=== PATIENT | female | born 1980 | race Caucasian/White ===

== ENCOUNTER 2022-07-12 12:14 | Emergency (ER) | payer OTHER ==
--- NOTE | 2022-07-12 12:50 | ER ---
Nurse's Notes [facility] Name: Belkis Carter Age: 41 yrs Sex: Female : 1980 Arrival Date: 07/12/2022 Time: 12:18 Bed 28 Private MD: Diagnosis: Unspecified acute conjunctivitis, left eye Presentation: 07/12 12:23 Chief complaint: Patient states: "Sia had pink eye for 11 days". Using prescribed eye ll1 drops, just got worse yesterday. More pain, blurred vision, and very photosensitive for 2 days. Fever 993 at home yesterday. Coronavirus screen: Vaccine status: Patient reports being unvaccinated. Client denies travel out of the [place] in the last 14 days. At this time, the client does not indicate any symptoms associated with coronavirus-19. Ebola Screen: Patient denies travel to an Ebola-affected area in the 21 days before illness onset. Initial Sepsis Screen: Does the patient meet any 2 criteria? No. Patient's initial sepsis screen is negative. Does the patient have a suspected source of infection? Yes: S/S of meningitis or endocarditis. Risk Assessment: Do you want to hurt yourself or someone else? Patient reports no desire to harm self or others. Onset of symptoms was July 11, 2022. 12:23 Method Of Arrival: Ambulatory ll1 12:23 Acuity: FREDDY 3 ll1 Triage Assessment: 12:26 General: Appears uncomfortable, ill, Behavior is cooperative, appropriate for age. ll1 Pain: Complains of pain in left eye Pain currently is 9 out of 10 on a pain scale. EENT: Reports pain in left eye. Historical: - Allergies: 12:22 shrimp/shellfish; ll1 12:22 Gluten Protein; ll1 - PMHx: 12:22 Hypothyroidism; ll1 - PSHx: 12:22 bartholins gland removed; ll1 - Immunization history:: Client reports having NOT received the Covid vaccine. - Social history:: Smoking status: Patient denies any tobacco usage or history of. Screenin:54 Abuse screen: Denies threats or abuse. Nutritional screening: No deficits noted. em6 Tuberculosis screening: No symptoms or risk factors identified. Fall Risk Total Finn Fall Scale indicates No Risk (0-24 pts). Assessment: 12:53 General: Appears uncomfortable, Behavior is cooperative. Pain: Complains of pain in em6 left eye Pain currently is 9 out of 10 on a pain scale. Neuro: Level of Consciousness is awake, alert, obeys commands, Oriented to person, place, time, situation. Cardiovascular: Patient's skin is warm and dry. Respiratory: Airway is patent Respiratory effort is even, unlabored, Respiratory pattern is regular, symmetrical. GI: No signs and/or symptoms were reported involving the gastrointestinal system. : No signs and/or symptoms were reported regarding the genitourinary system. EENT: Eyes redness noted in left eye. Derm: No signs and/or symptoms reported regarding the dermatologic system. Musculoskeletal: Circulation, motion, and sensation intact. Range of motion: intact in all extremities. Vital Signs: 12:23 BP 143 / 96; Pulse 88; Resp 17; Temp 97.9; Pulse Ox 96% ; Weight 113.4 kg; Height 5 ft. ll1 4 in. (162.56 cm); Pain 9/10; 12:53 BP 132 / 94; Pulse 70; Resp 16; Pulse Ox 99% on R/A; em6 12:23 Body Mass Index 42.91 (113.40 kg, 162.56 cm) ll1 ED Course: 12:18 Patient arrived in ED. mr 12:26 Triage completed. ll1 12:27 Arm band placed on Patient placed in an exam room, on a stretcher. ll1 12:41 Finn Montemayor NP is PHCP. pm1 12:41 Allie Valverde MD is Attending Physician. pm1 12:50 Herman Cannon MD is Referral Physician. pm1 12:52 Gina Myers RN is Primary Nurse. em6 12:54 Bed in low position. Call light in reach. Pulse ox on. NIBP on. Warm blanket given. em6 13:19 No provider procedures requiring assistance completed. Patient did not have IV access em6 during this emergency room visit. Administered Medications: 12:53 Drug: [employer] (HYDROcodone-acetaminophen) (7.5 mg-325 mg) 1 tabs Route: PO; em6 13:18 Follow up: Response: No adverse reaction em6 Medication: 12:54 VIS not applicable for this client. em6 Outcome: 12:50 Discharge ordered by . pm1 13:19 Discharged to home ambulatory. em6 13:19 Condition: stable 13:19 Discharge instructions given to patient, significant other, Instructed on discharge instructions, follow up and referral plans. medication usage, Demonstrated understanding of instructions, follow-up care, medications, Prescriptions given X 2. 13:20 Patient left the ED. em6 Signatures: Juana Richardson mr MontemayorFinn, AUDIO VISUAL SECRETARY AUDIO VISUAL SECRETARY pm1 Jelena Morrison RN RN ll1 Gina Myers RN RN em6
--- NOTE | 2022-07-12 12:50 | EDPHYS ---
Physician Documentation [facility] Name: Belkis Carter Age: 41 yrs Sex: Female : 1980 Arrival Date: 07/12/2022 Time: 12:18 Bed 28 Private MD: ED Physician Allie Valverde HPI: 07/12 12:49 This 41 yrs old Female presents to ER via Ambulatory with complaints of Vision Problem. pm1 12:49 The patient is experiencing matting or discharge, pain, to the left eye, caused by an pm1 unknown mechanism. Onset: The symptoms/episode began/occurred 11 day(s) ago. Duration: the symptoms are continuous. Aggravated by light, opening eye, Alleviated by covering eye. Associated signs and symptoms: Pertinent positives: sore throat last week. Patient does not utilize any form of vision correction. Severity of symptoms: in the emergency department the symptoms are unchanged. The patient has not experienced similar symptoms in the past. clinic and given polytrim opthalmic. Historical: - Allergies: 12:22 shrimp/shellfish; ll1 12:22 Gluten Protein; ll1 - PMHx: 12:22 Hypothyroidism; ll1 - PSHx: 12:22 bartholins gland removed; ll1 - Immunization history:: Client reports having NOT received the Covid vaccine. - Social history:: Smoking status: Patient denies any tobacco usage or history of. ROS: 12:49 Constitutional: Negative for fever, chills, and weight loss. pm1 12:49 Cardiovascular: Negative for chest pain, palpitations, and edema, Respiratory: Negative for shortness of breath, cough, wheezing, and pleuritic chest pain, MS/Extremity: Negative for injury and deformity, Skin: Negative for injury, rash, and discoloration. 12:49 Neuro: Negative for headache, weakness, numbness, tingling, and seizure. 12:49 Eyes: Positive for discharge, matting, pain, of the left eye, Negative for vision loss, visual disturbance. 12:49 ENT: Positive for sore throat, last week. 12:49 All other systems are negative. Exam: 12:49 Constitutional: This is a well developed, well nourished patient who is awake, alert, pm1 and in no acute distress. Head/Face: Normocephalic, atraumatic. 12:49 Skin: Warm, dry with normal turgor. Normal color with no rashes, no lesions, and no evidence of cellulitis. MS/ Extremity: Pulses equal, no cyanosis. Neurovascular intact. Full, normal range of motion. 12:49 Eyes: Periorbital structures: no acute changes, Pupils: no acute changes, Extraocular movements: no acute changes, Conjunctiva: injected, in the left eye. 12:49 ENT: Exam is negative for acute changes, Mouth: no acute changes, Lips: normal, moist, Oral mucosa: normal, pink and intact, moist, Posterior pharynx: no acute changes. 12:49 Cardiovascular: Exam negative for acute changes, Rate: normal, Rhythm: regular, Pulses: no pulse deficits are appreciated. 12:49 Respiratory: Exam negative for acute changes, respiratory distress, shortness of breath. 12:49 Neuro: Exam negative for acute changes, Orientation: is normal, Mentation: is normal, Motor: is normal, moves all fours. Vital Signs: 12:23 BP 143 / 96; Pulse 88; Resp 17; Temp 97.9; Pulse Ox 96% ; Weight 113.4 kg; Height 5 ft. ll1 4 in. (162.56 cm); Pain 9/10; 12:53 BP 132 / 94; Pulse 70; Resp 16; Pulse Ox 99% on R/A; em6 12:23 Body Mass Index 42.91 (113.40 kg, 162.56 cm) ll1 MDM: 12:41 Patient medically screened. pm1 12:48 Data reviewed: vital signs. Data interpreted: Pulse oximetry: on room air is 96 %. pm1 Interpretation: normal. 12:49 Counseling: I had a detailed discussion with the patient and/or guardian regarding: the pm1 historical points, exam findings, and any diagnostic results supporting the discharge/admit diagnosis, the need for outpatient follow up, an opthalmologist, to return to the emergency department if symptoms worsen or persist or if there are any questions or concerns that arise at home. Administered Medications: 12:53 Drug: [place] (HYDROcodone-acetaminophen) (7.5 mg-325 mg) 1 tabs Route: PO; em6 13:18 Follow up: Response: No adverse reaction em6 Disposition Summary: 07/12/22 12:50 Discharge Ordered Location: Home pm1 Problem: new pm1 Symptoms: have improved pm1 Condition: Stable pm1 Diagnosis - Unspecified acute conjunctivitis, left eye pm1 Followup: pm1 - With: Emergency Department - When: As needed - Reason: Worsening of condition Followup: pm1 - With: Herman Cannon MD - When: 2 - 3 days - Reason: Recheck today's complaints, Continuance of care, Re-evaluation by your physician Discharge Instructions: - Discharge Summary Sheet pm1 - Bacterial Conjunctivitis, Adult pm1 - How to Use Eye Drops and Eye Ointments pm1 Forms: - Medication Reconciliation Form pm1 - Thank You Letter pm1 - Antibiotic Education pm1 - Prescription Opioid Use pm1 Prescriptions: - Amoxicillin 500 mg Oral Capsule - take 1 capsule by ORAL route every 8 hours for 10 days; 30 tablet; Refills: 0, pm1 Product Selection Permitted - Vigamox 0.5 % Ophthalmic Drops - instill 1 drop by OPHTHALMIC route every 8 hours for 7 days; 5 milliliter; pm1 Refills: 0, Product Selection Permitted Signatures: Finn Montemayor NP [employer]IE[employer] pm1 Jelena Morrison, RN RN ll1 Gina Myers RN RN em6
[2022-07-12] MEDS ORDERED: HYDROCODONE/APAP 7.5/325 MG TAB ONE (12:58)
[2022-07-12 13:48] VITALS: TEMP 97.9
[2022-07-12 13:50] VITALS: BP 132/94; O2SAT 99
== END 2022-07-12 13:20 | disposition home or self-care (01) ==
LOC: ER 12:14
DX: H10.32 Unspecified acute conjunctivitis, left eye (principal); Z91.013 Allergy to seafood; Z91.018 Allergy to other foods
CPT/HCPCS: 99283